=== PATIENT | male | born 1970 | race Caucasian/White ===

== ENCOUNTER 2021-12-17 16:40 | Emergency (ER) | payer OTHER ==
[2021-12-17 17:16] LABS: BASOPHIL 0.5 % (0-2); EOSINOPHIL 0.6 % (0-5); HCT 50.1 % (42.0-52.0); HGB 17.1 g/dl (13.2-18.0); LYMPHOCYTE 15.4 % (15-48); MCH 29.2 pg (25.0-31.0); MCHC 34.1 g/dL (32.0-36.0); MCV 85.5 fL (78.0-100.0); MONOCYTE 4.7 % (0-12); MPV 10.9 fL (6.0-9.5); NEUTROPHIL 78.3 % (41-80); NRBC 0; PLT 173 K/uL (150-400); RBC 5.86 M/uL (4.70-6.00); RDW 12.5 % (11.5-14.0); WBC 8.1 K/uL (4.0-10.5)
[2021-12-17 17:23] LABS: INR 0.98 (0.9-1.2); PROTHROMBIN TIME 12.7 SECONDS (11.9-13.9)
[2021-12-17 17:25] LABS: D-DIMER 0.41 ug/mLFEU (0.00-0.41)
[2021-12-17 18:06] LABS: ALBUMIN 3.9 g/dL (3.4-5.0); ALKALINE PHOSHATASE 64 U/L (46-116); ALT 37 U/L (16-63); AST 18 U/L (15-37); BILIRUBIN - TOTAL 0.3 mg/dL (0.2-1.0); BUN 16 mg/dL (7-18); BUN/CREAT RATIO (CALC) 20.5 RATIO; CHLORIDE 99 mmol/L (98-107); CO2 (BICARBONATE) 27 mmol/L (21-32); CREATININE 0.78 mg/dL (0.67-1.17); GLOBULIN (CALCULATION) 2.7 g/dL; GLUCOSE 346 mg/dL (74-106); LIPASE 355 U/L (73-393); POTASSIUM 4.3 mmol/L (3.5-5.1); TOTAL PROTEIN 6.6 g/dL (6.4-8.2)
[2021-12-17] MEDS ORDERED: MEDROL 4MG DOSEP4 MG PO (21:24)
== END 2021-12-17 21:25 | disposition home or self-care (01) ==
LOC: FER 16:40
PROVIDERS: Emergency Medicine
DX: R07.89 Other chest pain (principal); E11.9 Type 2 diabetes mellitus without complications; Z28.310 Unvaccinated for COVID-19; Z79.84 Long term (current) use of oral hypoglycemic drugs; Z88.5 Allergy status to narcotic agent
CPT/HCPCS: 36415; 71275; 80053; 83690; 83735; 84484; 85025; 85379; 85610; J2930; J7030; Q9967